=== PATIENT | male | born 1955 | race Caucasian/White ===

== ENCOUNTER 2018-01-06 08:06 | Day surgery (SDC) | payer BC ==
[2018-01-06] MEDS ORDERED: LIDOCAINE 2% MDV (20MG/ML) 20ML VIAL IV ONE (08:07)
[2018-01-06] MEDS ORDERED: PROPOFOL 10 MG/ML VIAL IV ONE (08:07)
--- NOTE | 2018-01-06 12:30 | Operative Note ---
DATE OF SURGERY: 01/06/2018 OPERATION: COLONOSCOPY with cold snare polypectomy x8. PREOPERATIVE DIAGNOSIS: Personal history of adenomatous colon polyps. POSTOPERATIVE DIAGNOSIS: Multiple colon polyps. PROCEDURE: After informed consent was obtained from the patient, he was placed in the left lateral decubitus position in the endoscopy suite, sedated and monitored by the department of anesthesia. Digital rectal examination was unremarkable. A well-lubricated [id number] colonoscope was inserted into the rectum and advanced to the cecum. Preparation quality was good. The ileocecal valve and appendiceal orifice were identified as well as the cecum. No abnormalities were seen. The ascending colon revealed one 4 mm polyp removed with a cold snare. There was one transverse colon polyp which was approximately 4 mm and was removed with a cold snare. Each of these polyps were retrieved without incident. There was one descending colon polyp approximately 4-5 mm in diameter removed with a cold snare as well. In the sigmoid colon, there were 5 sessile polyps each removed with a cold snare. No other abnormalities otherwise identified. The rectum was unremarkable in forward and in J-turn views. The endoscope was straightened, the rectal ampulla deflated, and the endoscope was removed. RECOMMENDATIONS: The patient should resume his medications and diet. He will require repeat exam in 3 years for continued surveillance. As always, thank you for allowing me to participate in the healthcare of your patients. CC: MD MARITA Martinez
== END 2018-01-06 09:20 | disposition home or self-care (01) ==
LOC: HOP 08:06
PROVIDERS: ATTEND Internal Medicine Gastroenterology
DX: Z86.010 Personal history of colon polyps (principal); D12.3 Benign neoplasm of transverse colon; D12.2 Benign neoplasm of ascending colon; D12.5 Benign neoplasm of sigmoid colon; I10 Essential (primary) hypertension; E78.00 Pure hypercholesterolemia, unspecified

== ENCOUNTER 2018-04-26 10:03 | Emergency (ER) | payer SELFPAY ==
--- NOTE | 2018-04-26 10:13 | Emergency Department Record ---
History of Present Illness - General Stated complaint: KNEE INJURY Time Seen by Provider: 04/26/18 10:04 Source: Patient Mode of Arrival: Ambulatory Limitations: No limitations - History of Present Illness Initial comments: 63 yo male presents with an injury that occurred at work yesterday. He was walking on rocks at a job site and mis-stepped. His knee twisted and his foot bent awkwardly. He has persistent pain today. No swelling. His knee hurts medially. His ankle is not tender. His foot is tender in the mid medial area. MD Complaint: Extremity pain, Joint pain -: Days(s) (1) Location: Ankle, Foot History of Same: No -: Yes Arthralgia Radiation: Proximal, Distal Quality: Aching Consistency: Constant Improves with: Immobilization Worsens with: Palpation, Weight bearing Associated Symptoms: Denies other symptoms - Related Data Allergies Allergy/AdvReac Type Severity Reaction Status Date / Time No Known Drug Allergies Allergy Verified 04/26/18 10:08 Review of Systems Constitutional: Denies: Chills, Fever, Weakness Eyes: Denies: Eye discharge ENT: Denies: Congestion, Throat pain Respiratory: Denies: Cough, Dyspnea Cardiovascular: Denies: Chest pain Endocrine: Denies: Fatigue Gastrointestinal: Denies: Abdominal pain, Diarrhea, Nausea, Vomiting Genitourinary: Denies: Dysuria, Frequency, Hematuria Musculoskeletal: Reports: Arthralgia Skin: Denies: Bruising, Change in color, Rash Neurological: Denies: Headache, Numbness, Weakness Psychiatric: Denies: Anxiety Hematological/Lymphatic: Denies: Easy bleeding, Easy bruising Past Medical History - SOCIAL HISTORY Smoking Status: Current every day smoker - RESPIRATORY Hx Respiratory Disorders: No - CARDIOVASCULAR Hx Cardio Disorders: Yes Hx Hypertension: Yes (140/90's while on medication) Comment:: high cholesterol - NEURO Hx Neuro Disorders: No - GI Hx GI Disorders: Yes Hx of Polyps: Yes - Hx Genitourinary Disorders: No - ENDOCRINE Hx Endocrine Disorders: No - MUSCULOSKELETAL Hx Musculoskeletal Disorders: Yes - PSYCH Hx Psych Problems: No - HEMATOLOGY/ONCOLOGY Hx Hematology/Oncology Disorders: No Family Medical History Hx Cancer: Father, Brother/Sister *Cancer Comment: brother-liver, father-colon Hx Dementia: Grandparents *Dementia Comment: m. grandmother Hx Diabetes: Mother, Brother/Sister Hx Heart Disease: Mother, Brother/Sister Hx HTN: Mother Hx Kidney Disease: Brother/Sister *Kidney Comment: brother Hx Stroke: Grandparents *Stroke Comment: p. grandmother Physical Exam - General General Appearance: Alert, Oriented x3, Cooperative, No acute distress Limitations: No limitations - Head Head exam: Atraumatic, Normal inspection - Eye Eye exam: Normal appearance. negative: Conjunctival injection - ENT ENT exam: Normal exam Ear exam: Normal external inspection Nasal Exam: Normal inspection Mouth exam: Normal external inspection - Neck Neck exam: Normal inspection - Cardiovascular Peripheral Pulses: 2+: Dorsalis Pedis (L) - Extremities Extremities exam: Normal inspection, Full ROM, Normal capillary refill, Tenderness. negative: Calf tenderness, Joint swelling, Pedal edema Image of Full Body: 1 - medial knee tenderness, no swelling, stable anterior and posterior drawer, patella and quads tendon intact, 2 - non tender ankle, medial toe closing machine tender, normal inspection, achilles intact - Neurological Neurological exam: Alert, Oriented X3 - Psychiatric Psychiatric exam: Normal affect, Normal mood - Skin Skin exam: Dry, Intact, Normal color, Warm Course - Reevaluation(s) Reevaluation #1: The XR's were reviewed. No acute injury or fracture We discussed possible ST injury and the need for follow up with the PCP 04/26/18 11:02 Disposition Disposition: Discharge Clinical Impression: Sprain, knee Qualifiers: Encounter type: initial encounter Involved ligament of knee: unspecified ligament Laterality: left Qualified Code(s): S83.92XA - Sprain of unspecified site of left knee, initial encounter Sprain of foot, left Qualifiers: Encounter type: initial encounter Qualified Code(s): S93.602A - Unspecified sprain of left foot, initial encounter Disposition: Home, Self-Care Condition: (1) Good Instructions: Knee Sprain (ED), Foot Sprain (ED) Additional Instructions: Ice the sore areas twice daily to prevent swelling Recheck with your doctor in the next week if pain continues If pain continues you may need further work up for cartilage or ligament injuries. Use the boot and crutches for support and comfort until pain free Time of Disposition: 11:02 Quality - Quality Measures Quality Measures: N/A - Blood Pressure Screening Does Patient Have Any of the Following: Active Dx of HTN Blood Pressure Classification: Hypertensive Reading Systolic Measurement: 159 Diastolic Measurement: 99 Screening for High Blood Pressure: Patient Exclusion, Hx of HTN [[id number]]
== END 2018-04-26 11:25 | disposition home or self-care (01) ==
LOC: ER 10:03
DX: S83.92XA Sprain of unspecified site of left knee, initial encounter (principal); S93.602A Unspecified sprain of left foot, initial encounter; W18.49XA Other slipping, tripping and stumbling without falling, initial encounter; Y99.0 Civilian activity done for income or pay; I10 Essential (primary) hypertension; F17.210 Nicotine dependence, cigarettes, uncomplicated
CPT/HCPCS: 99283

== ENCOUNTER 2019-08-24 19:01 | Emergency (ER) | payer BC ==
[2019-08-24] MEDS ORDERED: HYDROMORPHONE HCL 2 MG/ML VIAL IVP ONE (19:14)
[2019-08-24 19:15] LABS: ABSOLUTE NEUTROPHIL COUNT 7.79; BASO % 0.3 % (0-6); EOS % 1.7 % (0-6); GRAN % 74.4 % (47-80); HEMATOCRIT 44.8 % (42.0-52.0); LYMPH % 16.2 % (16-45); MEAN CELL VOLUME 90.3 fl (81-97); MEAN CORPUSCULAR HEMOGLOBIN 30.2 pg (27-33); MEAN CORPUSCULAR HGB CONC 33.5 g/dl (32-36); MEAN PLATELET VOLUME 8.5 fl (7.4-10.4); MONO % 7.4 % (0-9); PLATELET COUNT 377 K/uL (130-400); RED BLOOD COUNT 4.96 M/uL (4.40-5.70); RED CELL DISTRIBUTION WIDTH 13.9 % (11.5-14.5); WHITE BLOOD COUNT W/O DIFF 10.5 K/uL (4.2-12.2)
[2019-08-24 19:25] LABS: BLOOD UREA NITROGEN 11 mg/dL (8-23); CREATININE 0.9 mg/dL (0.7-1.2); EST GLOMERULAR FILTRATION RATE > 60 mL/min
[2019-08-24 19:26] LABS: LIPASE 20 U/L (13-60); TOTAL PROTEIN 6.8 g/dL (6.6-8.7)
[2019-08-24 19:28] LABS: GLUCOSE,RANDOM 145 mg/dL (74-109)
[2019-08-24] MEDS ORDERED: 0.9 % SODIUM CHLORIDE 1,000 ML BAG IV ONE (19:28)
[2019-08-24 19:31] LABS: ALB/GLOB RATIO 1.6 (1.1-1.8); ALBUMIN 4.2 g/dL (4.0-5.0); ALKALINE PHOSPHATASE 79 U/L (40-129); ALT/SGPT 27 U/L (<41); AST/SGOT 17 U/L (10.0-50.0)
--- NOTE | 2019-08-24 20:06 | CT SCAN REPORT ---
EXAMINATION: CT Abdomen and Pelvis without IV Contrast EXAM DATE: 08/24/2019 7:48 PM TECHNIQUE: Standard protocol CT imaging of the abdomen and pelvis was performed without intravenous c ontrast. INDICATION: Abdominal pain across the lower abdomen for 3 hours COMPARISON: None ENCOUNTER: Not applicable CT ABDOMEN AND PELVIS FINDINGS: Lung Bases: Moderate emphysema. Clear. Hepatobiliary: The liver has a normal size with a smooth surface. The gallbladder is absent Pancreas: The pancreas is normal. Spleen: The spleen is not enlarged. Adrenals: The adrenal glands are normal. Kidneys, Ureters, & Bladder: Both kidneys have a normal size and morphology. There is no hydronephro sis. Exophytic structure at the upper pole of the left kidney measuring 23 Hounsfield units in densit y and 16 mm in size. Both ureters have a normal course and caliber and the urinary bladder a normal m orphology and uniform wall thickness. No ureteral or bladder calculi are identified. Gastrointestinal: The stomach and small bowel are normal with no obstruction or inflammation. Normal appendix. Small to moderate fecal material throughout the colon without wall thickening or inflammati on. Reproductive Organs: Unremarkable Lymphatic System: There is no adenopathy within the abdomen or pelvis. Vasculature: Moderate aortoiliac calcification. Mild aneurysmal dilatation of the infrarenal abdomina l aorta measuring up to 3.6 cm. Peritoneum: No free fluid, free air, or inflammation Abdominal wall & Musculoskeletal: No suspicious bone lesions. Moderate to severe degenerative disc di sease at L5-S1. Assessment of the solid organs, soft tissues, and vascular structures is overall limi ilia on noncontrast imaging, IMPRESSION: 1. No acute inflammatory process of the abdomen or pelvis. 2. Normal appendix. 3. Exophytic structure at the upper pole the left kidney measuring 16 mm. The density is just over th at of simple fluid. A benign cyst is favored although recommend nonemergent renal ultrasound to confi rm. 4. Moderate aortic calcification with small infrarenal abdominal aortic aneurysm. No evidence of rupt ure. 5. Moderate emphysema. Dictated by: Giovanny De La O MD on 08/24/2019 7:58 PM. .
[2019-08-24 21:58] LABS: URINE APPEARANCE CLEAR; URINE BILIRUBIN NEGATIVE (NEGATIVE); URINE BLOOD NEGATIVE (NEGATIVE); URINE COLOR YELLOW; URINE GLUCOSE (UA) NEGATIVE (NEGATIVE); URINE KETONE NEGATIVE (NEGATIVE); URINE LEUKOCYTE ESTERASE NEGATIVE (NEGATIVE); URINE NITRITE NEGATIVE (NEGATIVE); URINE PROTEIN NEGATIVE (NEGATIVE); URINE UROBILINOGEN 0.2 E.U./dL (0.20 - 1.00)
--- NOTE | 2019-08-24 22:50 | Emergency Department Record ---
History of Present Illness - General Chief Complaint: Abdominal Pain Stated Complaint: ABD PAIN Time Seen by Provider: 08/24/19 19:09 Source: Patient Mode of Arrival: Ambulatory Limitations: No limitations - History of Present Illness Initial Comments: pt brought over from [facility] care in severe ap 05/18. it is constant. no n/v/c/d. it is over the lower abdomen Complaint: Abdominal pain Onset/Timin -: Hour(s) Location: LUQ, LLQ Radiation: R flank Severity: Severe Severity scale (1-10): 10 Quality: Sharp Consistency: Constant Improves With: Nothing Worsens With: Nothing Associated Symptoms: Denies other symptoms - Related Data Allergies Allergy/AdvReac Type Severity Reaction Status Date / Time No Known Drug Allergies Allergy Verified 08/24/19 19:09 Travel Screening - Travel/Exposure Within Last 30 Days Have you traveled within the last 30 days?: No - Travel/Exposure Within Last Year Have you traveled outside the [place] in the last year?: No - Additonal Travel Details Have you been exposed to anyone with a communicable illness?: No - Travel Symptoms Symptom Screening: None Review of Systems Reviewed: No additional complaints except as noted below Constitutional: Reports: As per HPI. Denies: Chills, Fever, Malaise, Night sweats, Weakness, Weight change Eyes: Reports: As per HPI. Denies: Eye discharge, Eye pain, Photophobia, Vision change ENT: Reports: As per HPI. Denies: Congestion, Dental pain, Ear pain, Epistaxis, Hearing loss, Throat pain Respiratory: Reports: As per HPI. Denies: Cough, Dyspnea, Hemoptysis, Stridor, Wheezes Cardiovascular: Reports: As per HPI. Denies: Arrhythmia, Chest pain, Dyspnea on exertion, Edema, Murmurs, Orthopnea, Palpitations, Paroxysmal nocturnal dyspnea, Rheumatic Fever, Syncope Endocrine: Reports: As per HPI. Denies: Fatigue, Heat or cold intolerance, Polydipsia, Polyuria Gastrointestinal: Reports: As per HPI, Abdominal pain. Denies: Constipation, Diarrhea, Hematemesis, Hematochezia, Melena, Nausea, Vomiting Genitourinary: Reports: As per HPI. Denies: Dysuria, Frequency, Hematuria, Incontinence, Retention, Testicular pain, Testicular mass, Urgency Musculoskeletal: Reports: As per HPI. Denies: Arthralgia, Back pain, Gout, Joint swelling, Myalgia, Neck pain Skin: Reports: As per HPI. Denies: Bruising, Change in color, Change in hair/nails, Lesions, Pruritus, Rash Neurological: Reports: As per HPI. Denies: Abnormal gait, Confusion, Headache, Numbness, Paresthesias, Seizure, Tingling, Tremors, Vertigo, Weakness Psychiatric: Reports: As per HPI. Denies: Anxiety, Auditory hallucinations, Depression, Homicidal thoughts, Suicidal thoughts, Visual hallucinations Hematological/Lymphatic: Reports: As per HPI. Denies: Anemia, Blood Clots, Easy bleeding, Easy bruising, Swollen glands Past Medical History - SOCIAL HISTORY Smoking Status: Current every day smoker Alcohol Use: None Drug Use: None - RESPIRATORY Hx Respiratory Disorders: No - CARDIOVASCULAR Hx Cardio Disorders: Yes Hx Hypertension: Yes (140/90's while on medication) Comment:: high cholesterol - NEURO Hx Neuro Disorders: No - GI Hx GI Disorders: Yes Hx of Polyps: Yes - Hx Genitourinary Disorders: No - ENDOCRINE Hx Endocrine Disorders: No - MUSCULOSKELETAL Hx Musculoskeletal Disorders: Yes - PSYCH Hx Psych Problems: No - HEMATOLOGY/ONCOLOGY Hx Hematology/Oncology Disorders: No Family Medical History Any Significant Family History?: Yes Hx Cancer: Father, Brother/Sister *Cancer Comment: brother-liver, father-colon Hx Dementia: Grandparents *Dementia Comment: m. grandmother Hx Diabetes: Mother, Brother/Sister Hx Heart Disease: Mother, Brother/Sister Hx HTN: Mother Hx Kidney Disease: Brother/Sister *Kidney Comment: brother Hx Stroke: Grandparents *Stroke Comment: p. grandmother Physical Exam - General General Appearance: Alert, Oriented x3, Cooperative, Moderate distress - Head Head exam: Normal inspection - Eye Eye exam: Normal appearance, PERRL, EOMI Pupils: Normal accommodation - ENT ENT exam: Normal exam, Mucous membranes moist, Normal external ear exam, Normal orophraynx Ear exam: Normal external inspection. negative: External canal tenderness Nasal Exam: Normal inspection. negative: Discharge, Sinus tenderness Mouth exam: Normal external inspection, Tongue normal Teeth exam: Normal inspection. negative: Dental caries Throat exam: Normal inspection. negative: Tonsillar erythema, Tonsillar exudate - Neck Neck exam: Normal inspection, Full ROM. negative: Tenderness - Respiratory Respiratory exam: Normal lung sounds bilaterally. negative: Respiratory distress - Cardiovascular Cardiovascular Exam: Regular rate, Normal rhythm, Normal heart sounds - GI/Abdominal GI/Abdominal exam: Soft, Normal bowel sounds, Guarding, Tenderness - Rectal Rectal exam: Deferred - exam: Deferred - Extremities Extremities exam: Normal inspection, Full ROM, Normal capillary refill. negative: Tenderness - Back Back exam: Reports: Normal inspection, Full ROM. Denies: Muscle spasm, Rash noted, Tenderness - Neurological Neurological exam: Alert, CN II-XII intact, Normal gait, Oriented X3 - Psychiatric Psychiatric exam: Normal affect, Normal mood - Skin Skin exam: Dry, Intact, Normal color, Warm Course Vital Signs 08/24/19 08/24/19 08/24/19 19:05 19:28 19:59 Temperature 97.5 F L Pulse Rate [ 84 78 Pulse Ox Probe] Respiratory 20 Rate Blood Pressure 140/126 149/90 [Left Arm] Pulse Ox 99 97 08/24/19 21:31 Temperature Pulse Rate [ 87 Pulse Ox Probe] Respiratory 20 Rate Blood Pressure 126/77 [Left Arm] Pulse Ox 94 L - Reevaluation(s) Reevaluation #1: 08/24/19 22:45 pain is totally resolved. ct shows 3.6cm aaa. with no evidence of rupture. it also shows possible cyst on kidney Medical Decision Making - Lab Data Result diagrams: 08/24/19 19:05 08/24/19 19:05 Lab Results 08/24/19 08/24/19 08/24/19 Range/Units 19:05 19:05 21:40 WBC 10.5 (4.2-12.2) K/uL RBC 4.96 (4.40-5.70) M/uL Hgb 15.0 (14.0-18.0) gm/dl Hct 44.8 (42.0-52.0) % MCV 90.3 (81-97) fl MCH 30.2 (27-33) pg MCHC 33.5 (32-36) g/dl RDW 13.9 (11.5-14.5) % Plt Count 377 (130-400) K/uL MPV 8.5 (7.4-10.4) fl Gran % 74.4 (47-80) % Lymphocytes % 16.2 (16-45) % Monocytes % 7.4 (0-9) % Eosinophils % 1.7 (0-6) % Basophils % 0.3 (0-6) % Absolute Neutrophils 7.79 Sodium 138 (136-145) mmol/L Potassium 3.8 (3.4-4.5) mmol/L Chloride 98 (98-107) mmol/L Carbon Dioxide 25.0 (22-29) mmol/L Anion Gap 15.0 (7-16) BUN 11 (8-23) mg/dL Creatinine 0.9 (0.7-1.2) mg/dL Estimated GFR > 60 mL/min Random Glucose 145 H (74-109) mg/dL Calcium 8.7 L (8.8-10.2) mg/dL Total Bilirubin 0.30 (0.2-1.0) mg/dL AST 17 (10.0-50.0) U/L ALT 27 (<41) U/L Alkaline Phosphatase 79 (40-129) U/L Total Protein 6.8 (6.6-8.7) g/dL Albumin 4.2 (4.0-5.0) g/dL Globulin 2.6 (1.4-4.8) gm/dL Albumin/Globulin Ratio 1.6 (1.1-1.8) Lipase 20 (13-60) U/L Urine Color Yellow Urine Appearance Clear Urine pH 6.5 (5.0-8.0) Ur Specific [place] 1.020 (1.002-1.030) Urine Protein Negative (NEGATIVE) Urine Glucose (UA) Negative (NEGATIVE) Urine Ketones Negative (NEGATIVE) Urine Blood Negative (NEGATIVE) Urine Nitrite Negative (NEGATIVE) Urine Bilirubin Negative (NEGATIVE) Urine Urobilinogen 0.2 (0.20 - 1.00) E.U./dL Ur Leukocyte Esterase Negative (NEGATIVE) Disposition Disposition: Discharge Clinical Impression: AAA (abdominal aortic aneurysm) without rupture, Kidney cysts Abdominal pain Qualifiers: Abdominal location: lower abdomen, unspecified Qualified Code(s): R10.30 - Lower abdominal pain, unspecified Disposition: Home, Self-Care Condition: (1) Good Instructions: Abdominal Pain (ED) Additional Instructions: follow up with family doctor regarding abdominal aortic aneurysm and kidney cyst. have ultrasound of kidneys. have ultrasoun of aorta once every 6 months. return sooner if worse Quality - Quality Measures Quality Measures: N/A - Blood Pressure Screening Does Patient Have Any of the Following: No Blood Pressure Classification: Pre-Hypertensive BP Reading Systolic Measurement: 126 Diastolic Measurement: 77 Screening for High Blood Pressure: < Pre-Hypertensive BP, F/U Documented > [G8950] Pre-Hypertensive Follow-up Interventions: Follow-up with rescreen every year.
== END 2019-08-24 23:00 | disposition home or self-care (01) ==
LOC: ER 19:01
DX: I71.4 Abdominal aortic aneurysm, without rupture (principal); R10.30 Lower abdominal pain, unspecified; F17.210 Nicotine dependence, cigarettes, uncomplicated
CPT/HCPCS: 99284 ×2; 96374; 96361; 83690; 85025; 80053; 81003; 74176; J1170; J7030